=== PATIENT | female | born 1935 | race Caucasian/White ===

== ENCOUNTER 2017-01-01 09:53 | Inpatient (IN) | payer OTHER ==
[~2017-01-01] VITALS: Ht 170.2 cm; Wt 59.0 kg
[2017-01-01 09:53] VITALS: BP_SYST 154
[2017-01-01 10:24] LABS: BASOPHILS % (AUTO) 0.3 % (0.0-2.0); EOSINOPHILS # (AUTO) 0.1 K/uL (0.0-0.4); EOSINOPHILS % (AUTO) 1.9 % (0.0-4.0); HEMATOCRIT 38.3 % (36-48); HEMOGLOBIN 12.8 g/dL (12.0-16.0); LYMPHOCYTES # (AUTO) 1.6 K/uL (1.0-5.5); LYMPHOCYTES % (AUTO) 25.8 % (20.5-51.5); MEAN CORPUSCULAR HEMOGLOBIN 30 pg (27-31); MEAN CORPUSCULAR HGB CONC 33 % (32-36); MEAN CORPUSCULAR VOLUME 90 fL (79.0-98.0); MONOCYTES # (AUTO) 0.6 K/uL (0.0-1.0); MONOCYTES % (AUTO) 9.8 % (1.7-9.3); NEUTROPHILS % (AUTO) 62.2 % (40.0-70.0); PLATELET COUNT (AUTO) 181 K/uL (130-430); RED BLOOD CELL COUNT(AUTO) 4.24 MIL/uL (4.2-6.2); RED CELL DISTRIBUTION WIDTH 13.8 % (9.0-15.0); WHITE BLOOD COUNT (AUTO) 6.3 K/uL (4.8-10.8)
[2017-01-01 10:40] LABS: ANION GAP 9 (5-15); CALCIUM 8.9 mg/dL (8.4-11.0); CHLORIDE 103 mmol/L (98-107); GLUCOSE 108 mg/dL (70-99); POTASSIUM 4.5 mmol/L (3.5-5.1); SODIUM SERUM 136 mmol/L (136-145); UREA NITROGEN, BLOOD 19 mg/dL (8-21)
[2017-01-01 10:41] LABS: CREATININE 1.51 mg/dL (0.55-1.30)
[2017-01-01 10:45] LABS: TOTAL BILIRUBIN 0.4 mg/dL (0.0-1.0)
[2017-01-01 10:46] LABS: ALANINE AMINOTRANSFERASE 16 U/L (12-78); ALBUMIN 3.4 g/dL (3.4-4.8); ASPARTATE AMINOTRANSFERASE 16 U/L (10-37)
[2017-01-01 10:47] LABS: PROTHROMBIN TIME 11.2 SECS (9.5-12.5)
[2017-01-01] MEDS ORDERED: cloNIDine HCL 0.1 MG TABLET PO ONE (11:30)
[2017-01-01] MEDS ORDERED: ASPIRIN 325 MG TABLET PO ONE (12:30)
[2017-01-01] MEDS ORDERED: BUPR-120 PO (12:39)
[2017-01-01] MEDS ORDERED: PEPP90CA PO (12:39)
[2017-01-01] MEDS ORDERED: THOR10 PO (12:39)
[2017-01-01] MEDS ORDERED: LACT1CAP72 PO (12:39)
[2017-01-01] MEDS ORDERED: CALC625T64 PO (12:39)
[2017-01-01 13:29] LABS: BILIRUBIN,URINE NEGATIVE (NEGATIVE); BLOOD, URINE NEGATIVE (NEGATIVE); CLARITY/URINE CLEAR (CLEAR); COLOR,URINE YELLOW (YELLOW); GLUCOSE,URINE NEGATIVE (NEGATIVE); KETONES,URINE NEGATIVE (NEGATIVE); LEUKOCYTE ESTERASE ,URINE NEGATIVE (NEGATIVE); NITRITE, URINE NEGATIVE (NEGATIVE); PH,URINE 6.5 (5.0-8.0); PROTEIN URINE NEGATIVE (NEGATIVE); UROBILINOGEN,URINE 0.2 (0.2-1.0)
[2017-01-01 13:37] VITALS: BP_SYST 131
[2017-01-01] MEDS ORDERED: MULT PO (14:22)
[2017-01-01] MEDS ORDERED: ESCI10TA54 PO (14:22)
[2017-01-01 16:19] VITALS: BP_SYST 135
[2017-01-01] MEDS ORDERED: THORAZINE PO SCH (21:00)
[2017-01-01 23:49] VITALS: BP_SYST 150
[2017-01-02 04:11] VITALS: BP_SYST 150
[2017-01-02 07:57] VITALS: BP_SYST 136
[2017-01-02] MEDS ORDERED: CITALOPRAM HYDROBROMIDE 20 MG TABLET PO SCH (09:00)
[2017-01-02] MEDS ORDERED: MULTIVITAMINS TAB 1 TABLET PO SCH (09:00)
[2017-01-02] MEDS ORDERED: ESCITALOPRAM OXALATE 10 MG TABLET PO SCH (09:00)
[2017-01-02] MEDS ORDERED: buPROPion HCL 150 MG XL TAB PO SCH (09:00)
[2017-01-02 10:02] VITALS: BP_SYST 127
== END 2017-01-02 10:50 | disposition home or self-care (01) | DRG 312 ==
LOC: SED 09:53 → STU 13:08
PROVIDERS: ADMIT Internal Medicine Hospice and Palliative Medicine; ATTEND Internal Medicine Hospice and Palliative Medicine
DX: R55 Syncope and collapse (principal); I10 Essential (primary) hypertension; F32.9 Major depressive disorder, single episode, unspecified; K58.9 Irritable bowel syndrome, unspecified; W18.39XA Other fall on same level, initial encounter; Z88.2 Allergy status to sulfonamides; Z98.51 Tubal ligation status; Z87.891 Personal history of nicotine dependence; Y93.89 Activity, other specified; Y92.89 Other specified places as the place of occurrence of the external cause; Y99.8 Other external cause status; Z90.722 Acquired absence of ovaries, bilateral; Z79.899 Other long term (current) drug therapy; Z91.018 Allergy to other foods
CPT/HCPCS: 36415; 70450-TC; 71010; 80053; 81003; 83605; 84484; 85025; 85610-TC; 85730-TC; 87040-TC; 87086; 93005; 93306; 93880; 99285

== ENCOUNTER 2021-01-29 10:21 | Emergency (ER) | payer OTHER ==
[~2021-01-29] VITALS: Ht 167.6 cm; Wt 55.3 kg
[~2021-01-29 10:21] MED LIST: BUPR-120 PO; CALC625T64 PO; ESCI-6 PO; LACT1CAP72 PO; MULT PO; PEPP90CA PO; THOR10 PO
[2021-01-29 10:23] VITALS: BP_SYST 200
[2021-01-29] MEDS ORDERED: LABETALOL 100 MG/ 20ML VIAL IVP ONE (10:45)
[2021-01-29 11:05] LABS: BASOPHILS # (AUTO) 0.1 K/uL (0.0-0.2); EOSINOPHILS # (AUTO) 0.2 K/uL (0.0-0.4); EOSINOPHILS % (AUTO) 3.3 % (0.0-4.0); HEMATOCRIT 40.4 % (36-48); HEMOGLOBIN 13.5 g/dL (12.0-16.0); LYMPHOCYTES # (AUTO) 2.8 K/uL (1.0-5.5); MEAN CORPUSCULAR HEMOGLOBIN 29 pg (27-31); MEAN CORPUSCULAR HGB CONC 33 % (32-36); MEAN CORPUSCULAR VOLUME 88 fL (79.0-98.0); MONOCYTES # (AUTO) 0.7 K/uL (0.0-1.0); MONOCYTES % (AUTO) 9.8 % (1.7-9.3); NEUTROPHILS # (AUTO) 3.1 K/uL (1.8-7.7); NEUTROPHILS % (AUTO) 44.9 % (40.0-70.0); PLATELET COUNT (AUTO) 146 K/uL (130-430); RED BLOOD CELL COUNT(AUTO) 4.61 MIL/uL (4.2-6.2); RED CELL DISTRIBUTION WIDTH 15.2 % (9.0-15.0); WHITE BLOOD COUNT (AUTO) 6.9 K/uL (4.8-10.8)
[2021-01-29 11:13] LABS: ANION GAP 8 (5-15); CALCIUM 9.2 mg/dL (8.4-11.0); CHLORIDE 105 mmol/L (98-107); CREATININE 1.21 mg/dL (0.55-1.30); GLUCOSE 89 mg/dL (70-99); POTASSIUM 3.6 mmol/L (3.5-5.1); SODIUM SERUM 141 mmol/L (136-145); UREA NITROGEN, BLOOD 18 mg/dL (8-21)
[2021-01-29 11:21] LABS: ALANINE AMINOTRANSFERASE 12 U/L (12-78); ALBUMIN 3.7 g/dL (3.4-4.8); ASPARTATE AMINOTRANSFERASE 18 U/L (10-37); TOTAL BILIRUBIN 0.5 mg/dL (0.0-1.0)
[2021-01-29] MEDS ORDERED: LISINOPRIL 10 MG TABLET (PRINIVIL) PO ONE (12:30)
[2021-01-29] MEDS ORDERED: cloNIDine HCL 0.1 MG TABLET PO ONE (14:15)
[2021-01-29 18:55] VITALS: BP_SYST 119
== END 2021-01-29 18:55 ==
LOC: SED 10:21
DX: I16.0 Hypertensive urgency (principal); F03.90 Unspecified dementia, unspecified severity, without behavioral disturbance, psychotic disturbance, mood disturbance, and anxiety; Z88.2 Allergy status to sulfonamides; Z91.011 Allergy to milk products; Z79.899 Other long term (current) drug therapy
CPT/HCPCS: 36415; 80053; 84484; 85025; 93005; 96374; 99285; J3490

== ENCOUNTER 2021-05-10 07:43 | Emergency (ER) | payer OTHER, SELFPAY ==
[2021-05-10 07:43] VITALS: BP_SYST 143
--- NOTE | 2021-05-10 07:43 | NUR ---
BROUGHT IN BY [facility], PLACED IN BED #3 AND TRIAGED. REPORT GIVEN TO MARLON
[2021-05-10] MEDS ORDERED: NACL 0.9% 1,000 ML IV ONE (08:00)
--- NOTE | 2021-05-10 08:02 | NUR ---
TAKEN TO RADIOLOGY VIA [facility]
[2021-05-10] MEDS ORDERED: DONE10TA44 PO (08:13)
[2021-05-10] MEDS ORDERED: LORA-258 PO (08:13)
[2021-05-10] MEDS ORDERED: ASPI-1047 PO (08:14)
[2021-05-10] MEDS ORDERED: LISI-652 PO (08:14)
--- NOTE | 2021-05-10 08:19 | NUR ---
RETURNED FROM RADIOLOGY VIA [facility]
--- NOTE | 2021-05-10 08:44 | NUR ---
pt brought back from ct scan, large bleed right side of head. daughter was called and dr phipps updated daughter. [facility] initiated.
--- NOTE | 2021-05-10 09:13 | NUR ---
DR MALLOY UPDATED ABOUT PTS BP
[2021-05-10] MEDS ORDERED: LABETALOL 100 MG/ 20ML VIAL IVP ONE (09:15)
[2021-05-10 09:25] LABS: BILIRUBIN,URINE NEGATIVE (NEGATIVE); BLOOD, URINE NEGATIVE (NEGATIVE); CLARITY/URINE SL CLOUDY (CLEAR); COLOR,URINE YELLOW (YELLOW); GLUCOSE,URINE NEGATIVE (NEGATIVE); KETONES,URINE NEGATIVE (NEGATIVE); LEUKOCYTE ESTERASE ,URINE 1+ (NEGATIVE); NITRITE, URINE NEGATIVE (NEGATIVE); PH,URINE 5.5 (5.0-8.0); PROTEIN URINE NEGATIVE (NEGATIVE); UROBILINOGEN,URINE 0.2 (0.2-1.0)
[2021-05-10 09:41] LABS: BARBITURATE, URINE NEGATIVE (NEG <=200); BENZODIAZEPINE, URINE NEGATIVE (NEG <=150); CANNABINOID, URINE NEGATIVE (NEG <=50); COCAINE, URINE NEGATIVE (NEG <=150); METHAMPHETAMINES SCREEN,URINE NEGATIVE (NEG <=500); OPIATE, URINE NEGATIVE (NEG <=100); PHENCYCLIDINE SCREEN,URINE NEGATIVE (NEG <=25); UR TRICYCLIC ANTIDEPRESSANTS NEGATIVE (NEG <=300); URINE AMPHETAMINE NEGATIVE (NEG <=500); URINE METHADONE NEGATIVE (NEG <=200); URINE OXYCODONE SCREEN NEGATIVE (NEG <=100); URINE PROPOXYPHENE SCREEN NEGATIVE (NEG <=300)
[2021-05-10 09:46] LABS: BASOPHILS # (AUTO) 0.1 K/uL (0.0-0.2); BASOPHILS % (AUTO) 0.5 % (0.0-2.0); EOSINOPHILS # (AUTO) 0.1 K/uL (0.0-0.4); EOSINOPHILS % (AUTO) 0.9 % (0.0-4.0); HEMATOCRIT 42.9 % (36-48); HEMOGLOBIN 14.2 g/dL (12.0-16.0); LYMPHOCYTES # (AUTO) 2.8 K/uL (1.0-5.5); LYMPHOCYTES % (AUTO) 27.6 % (20.5-51.5); MEAN CORPUSCULAR HEMOGLOBIN 29 pg (27-31); MEAN CORPUSCULAR HGB CONC 33 % (32-36); MEAN CORPUSCULAR VOLUME 88 fL (79.0-98.0); MONOCYTES # (AUTO) 0.8 K/uL (0.0-1.0); MONOCYTES % (AUTO) 7.9 % (1.7-9.3); NEUTROPHILS # (AUTO) 6.3 K/uL (1.8-7.7); NEUTROPHILS % (AUTO) 63.1 % (40.0-70.0); PLATELET COUNT (AUTO) 157 K/uL (130-430); RED BLOOD CELL COUNT(AUTO) 4.87 MIL/uL (4.2-6.2); RED CELL DISTRIBUTION WIDTH 14.9 % (9.0-15.0)
[2021-05-10 09:51] LABS: ANION GAP 7 (5-15); CALCIUM 9.1 mg/dL (8.4-11.0); CHLORIDE 105 mmol/L (98-107); CREATININE 1.12 mg/dL (0.55-1.30); GLUCOSE 99 mg/dL (70-99); POTASSIUM 4.3 mmol/L (3.5-5.1); SODIUM SERUM 139 mmol/L (136-145); UREA NITROGEN, BLOOD 18 mg/dL (8-21)
[2021-05-10 09:56] LABS: ALANINE AMINOTRANSFERASE 12 U/L (12-78); ALBUMIN 3.5 g/dL (3.4-4.8); ASPARTATE AMINOTRANSFERASE 22 U/L (10-37); TOTAL BILIRUBIN 0.3 mg/dL (0.0-1.0)
[2021-05-10 10:04] LABS: PROTHROMBIN TIME 10.8 SECS (9.5-12.5)
[2021-05-10 10:16] LABS: BACTERIA,URINE MODERATE /HPF (None Seen); RBC,URINE 0-3 /HPF (0-3)
[2021-05-10] MEDS ORDERED: cefTRIAXone 1 GM IVPB PREMIX 50 ML IV ONE (10:30)
--- NOTE | 2021-05-10 10:30 | NUR ---
ANGELA DAUGHTER AT BEDSIDE
--- NOTE | 2021-05-10 10:33 | NUR ---
Notified ED Admitting regarding Dr. Pastor request for admission. Per Dr. Pastor, pt is not stable for transfer. Will notify insurance producer regarding this matter. PER FACESHEET: JADA PULLIAM- MISA
--- NOTE | 2021-05-10 10:50 | NUR ---
Per ED Admitting, Maria Teresa requested fax of facesheet and clinicals FAX: [phone]
--- NOTE | 2021-05-10 11:11 | NUR ---
Maria Teresa Link called back to speak to Dr. Pastor regarding pt status. Stated to Dr. Pastor, they will contact their caser shoe parts and will call back.
--- NOTE | 2021-05-10 11:57 | NUR ---
DR MALLOY AWARE OF PTS BP NO RDERS RECEIVED
--- NOTE | 2021-05-10 14:03 | NUR ---
[facility] [id number]
--- NOTE | 2021-05-10 14:45 | NUR ---
Spoke w/ patient's daughter,Shukri Trujillo-[phone]-she would like the patient to be on hospice at [facility], her residence. I spoke w/ Jillian [phone], the biotech production specialist of [facility]. She asked me to call [facility] [phone]. I spoke to Sharon at [facility], she asked for clinical information and an order for hospice be faxed to [phone]. The patient's daughter agreed to hospice w/[facility]. All information requested sent to [facility] and RN caring for the patient was given the # for [facility] and informed of the plan of care for the patient.
--- NOTE | 2021-05-10 14:54 | NUR ---
Discharge Planning: DCP faxed pt referral to [facility] [phone].
[2021-05-10] MEDS ORDERED: MORPHINE 2 MG/ML INJ. SYRINGE IVP ONE (16:30)
--- NOTE | 2021-05-10 16:31 | NUR ---
Received a call from Chelsea at [facility]-Patient to be transported by [facility] at 6-6:30 PM-RN notified
--- NOTE | 2021-05-10 16:48 | NUR ---
SPOKE TO [facility] WILL BE HERE AT [phone] TO PU PT TAKE TO HOME FOR HOSPICE CARE
[2021-05-10 18:32] VITALS: BP_SYST 177
--- NOTE | 2021-05-10 18:34 | NUR ---
Patient daughter christa given written and verbal discharge instructions and verbalizes understanding. BRENDA sánchez MD discussed with patient the results and treatment provided. Patient in stable condition. ID arm band removed. Patient educated on pain management and to follow up with PMD. Pain Scale 0. Opportunity for questions provided and answered. Medication side effect fact sheet provided.
== END 2021-05-10 18:32 | disposition home or self-care (01) ==
LOC: SED 07:43
DX: I61.9 Nontraumatic intracerebral hemorrhage, unspecified (principal); R40.4 Transient alteration of awareness; Z88.2 Allergy status to sulfonamides; Z91.02 Food additives allergy status; Z91.011 Allergy to milk products; Z20.822 Contact with and (suspected) exposure to COVID-19
CPT/HCPCS: 36415; 70450; 71045; 76376; 80053; 80307; 81000; 85025; 85610; 85730; 87081; 87086; 87426; 96365; 96375; 99291; J0696; J2270; J3490; 99281; 99285